=== PATIENT | female | born 1965 | race Caucasian/White ===

== ENCOUNTER 2016-08-04 08:41 | Day surgery (SDC) | payer BC ==
--- NOTE | ~2016-08-04 | EGD ---
EGD REPORT [facility] [address] [address] NAME: DAYLIN ROGERS : [birth year] STATUS : REG [facility]#: [id number] AGE: 50 ADM/REG DATE : 08/04/16 MR#: [id number] REPORT SERV DATE: 08/04/16 DICTATED BY: DEION LIRA DATE: 08/04/16 REPORT STATUS : Draft [facility]ANS[facility]: [facility] DATE: 08/04/16 Endoscopy Center Patient Name: Daylin Rogers Date of : 1965 Attending MD: DEION LIRA MD Procedure Date No Time: 08/04/2016 Procedure: Upper GI endoscopy Indications: Abdominal pain in the right upper quadrant, Heartburn, Suspected esophageal reflux, Abdominal bloating, Nausea Referring MD: Radha Roberson MD Medicines: as per anesthesia Complications: No immediate complications. Procedure: Pre-Anesthesia Assessment: - ASA Grade Assessment: I - A normal, healthy patient. After obtaining informed consent, the endoscope was passed under direct vision. Throughout the procedure, the patient's blood pressure, pulse, and oxygen saturations were monitored continuously. The GIF [id number] was introduced through the mouth, and advanced to the third part of duodenum. The upper GI endoscopy was accomplished without difficulty. The patient tolerated the procedure. Findings: The examined esophagus was normal. The scope was withdrawn. Dilation was performed with a Warren dilator with no resistance at 44 Fr. The entire examined stomach was normal. The cardia and gastric fundus were normal on retroflexion. The examined duodenum was normal. Biopsies were taken with a cold forceps for histology. Impression: - Normal esophagus. Dilated. - Normal stomach. - Normal examined duodenum. Biopsied. Recommendation: - Await pathology results. - Follow an antireflux regimen. - Continue present medications. Procedure Code(s): --- Professional --- 50411, Esophagogastroduodenoscopy, flexible, transoral; with biopsy, single or multiple 37800, Dilation of esophagus, by unguided sound or bougie, single or multiple passes EGD REPORT [facility] [address] [place]. [address] NAME: DAYLIN ROGERS : [birth year] STATUS : REG [facility] PAT#: [id number] AGE: 50 ADM/REG DATE : 08/04/16 MR#: [id number] REPORT SERV DATE: 08/04/16 DICTATED BY: DEION LIRA. DATE: 08/04/16 REPORT STATUS : Draft TRANSCRIBED BY: [email or web address] DATE: 08/04/16 Diagnosis Code(s): --- Professional --- R10.11, Right upper quadrant pain R12, Heartburn R14.0, Abdominal distension (gaseous) R11.0, Nausea CPT copyright 2013 [employer]. All rights reserved. The codes documented in this report are preliminary and upon mold forms builder review may be revised to meet current compliance requirements. DEION LIRA MD 08/04/2016 10:21 AM This report has been signed electronically. Number of Addenda: 0 Note Initiated On: 08/04/2016 9:53 AM Scope Withdrawal Time 0 hours 0 minutes 0 seconds [address] [place] [address]
[~2016-08-04 08:41] MED LIST: FLONASE NAS; LEXAPRO10 PO; PRILO PO
== END 2016-08-04 23:59 | disposition home or self-care (01) ==
LOC: DMU 08:41
PROVIDERS: Internal Medicine Gastroenterology
PROC: 0DB98ZX Excision of Duodenum, Via Natural or Artificial Opening Endoscopic, Diagnostic (ICD-10-PCS; principal; 2016-08-04 10:00)
PROC: 0D750ZZ Dilation of Esophagus, Open Approach (ICD-10-PCS; 2016-08-04 10:00)
DX: R10.11 Right upper quadrant pain (principal); R14.0 Abdominal distension (gaseous); F41.9 Anxiety disorder, unspecified; Z79.51 Long term (current) use of inhaled steroids; Z79.899 Other long term (current) drug therapy
CPT/HCPCS: 88305